=== PATIENT | male | born 1935 | race Caucasian/White ===

== ENCOUNTER 2017-06-27 00:10 | Emergency (ER) | payer MEDICARE, OTHER ==
--- NOTE | 2017-06-27 00:31 | ERNOTE ---
ER Male HPI Date of Service: 06/27/17 Stated Complaint: KIDNEY PAIN ER Male: dysuria Time Seen by Provider: 06/27/17 00:26 Source: patient Exam Limitations: no limitations Immunizations: IMMUNIZATION HX Immunizations Up to Date Yes History of Influenza Vaccine No Hx Pneumococcal Vaccination No Allergies/Adverse Reactions: Allergies ciprofloxacin [From Cipro] Adverse Reaction (Mild, Verified 06/27/17 00:20) makes sick Home Medications: HOME MEDICATIONS metFORMIN HCL [Glumetza] 500 mg PO BID 09/24/12 [Last Taken 10/13/12] Finasteride [Proscar] 5 mg PO DAILY 02/13/15 [Last Taken Unknown] Tamsulosin HCl [Flomax] 0.4 mg PO DAILY@1800 02/13/15 [Last Taken Unknown] Phenazopyridine HCl [Pyridium] 100 mg PO TID PRN #9 tablet 06/27/17 [Last Taken Unknown] Sulfamethoxazole/Trimethoprim [Bactrim Ds] 1 tab PO BID #14 tablet 06/27/17 [ Last Taken Unknown] - History of Present Illness Narrative: 83-year-old who began having dysuria this morning so no notes right lower back pain which occurs with urination as well. No history of fevers, chills, nausea or vomiting. The patient notes that the pain at the right lower back is similar to when he had a kidney stone previously. History of diabetes mellitus. Date (Duration): 06/27/17 Time (Timing): 00:32 - . Timing: Present: intermittent Quality: Present: mild Onset Location: Present: other - right lower back Radiation: Present: none Activities at Onset: Present: none Review of Systems - Review of Systems Constitutional: Present: no symptoms reported EYE: Present: no symptoms reported ENT: Present: no symptoms reported Respiratory: Present: no symptoms reported Cardiology: Present: no symptoms reported Gastrointestinal/Abdominal: Present: no symptoms reported Genitourinary: Present: See HPI Musculoskeletal: Present: no symptoms reported Skin: Present: no symptoms reported Neurological: Present: no symptoms reported Endocrine: Present: See HPI Hematologic/Lymphatic: Present: no symptoms reported - Patient's Past Medical History Patient History - Medical: Diabetes Type 2, Kidney stone, Other Patient History - Cardiac/Respiratory: No pertinent hx Patient History - Cancer: No Hx of Cancer Patient History - Surgical Procedures: Appendectomy, Other Patient History - Other: None - Social History Living Situations: home Abuse History: No History of abuse Psych History: No pertinent hx Smoking Status: Former smoker Alcohol Use: none Drug Use: none - Immunizations Immunizations Up to Date: Yes Hx Pneumococcal Vaccination: No History of Influenza Vaccine: No Physical Exam - Physical Exam General Appearance: Present: no apparent distress Head Exam: Present: normal inspection Eye Exam: Normal inspection: bilateral, PERRL: bilateral, EOMI: bilateral Ears, Nose, Throat: Present: normal ENT inspection Neck: Present: normal inspection Respiratory: Present: no respiratory distress Cardiovascular/Chest: Present: regular rate, rhythm Gastrointestinal/Abdominal: Present: nontender, nondistended Back Exam: Present: normal inspection Extremity Exam: Present: normal inspection Neurological Exam: Present: alert, oriented, normal mood/affect Skin Exam: Present: normal color ED Progress - Results and Orders Patient's Lab Results:: I have reviewed the patient's lab results. - Vital Signs Patient's Vital Signs:: I have reviewed the patient's vital signs. Vital Signs: Vital Signs 06/27/17 00:16 Temperature 36.5 C Pulse Rate 96 Respiratory 16 Rate Blood Pressure 147/79 O2 Sat by Pulse 96 Oximetry - CT/Ultrasound CT/Ultrasound Narrative: CT scan- 12 millimeters cystic lesion in the mid body of the pancreas on image 31 cholelithiasis A thickened urinary bladder with high attenuation coefficient bladder lumen. Differential includes blood products, proteinaceous debris her well as well as neoplasm. - Progress/Reassessment Chief Complaint: Genitourinary Problem Progress:: Unchanged Progress Note-Subjective: 06/27/17 01:06 Given Rocephin 1 gram IM and Pyridium 100 mg po. 06/27/17 02:11 Hemodynamically stable and afebrile at this time. 06/27/17 02:18 Given one Bactrim tablet by mouth. Departure Clinical Impression: UTI (urinary tract infection) - Departure Disposition: Home self-care Condition: Good Instructions: Urinary Tract Infection, Adult, [id number] Print Language: Nepalese Additional Instructions: If you begin to feel sick or have fevers return to the ED. Prescriptions: Phenazopyridine HCl [Pyridium] 100 mg PO TID PRN #9 tablet PRN Reason: Pain Sulfamethoxazole/Trimethoprim [Bactrim Ds] 1 tab PO BID #14 tablet
[2017-06-27 00:42] LABS: Urine Bilirubin Negative (NEGATIVE); Urine Blood 250 /ul (NEGATIVE); Urine Ketone 5 mg/dL (NEGATIVE); Urine Protein 100 mg/dL (NEGATIVE); Urine Specific Gravity 1.025 SP.GR. (1.005-1.030); Urine Urobilinogen Normal (NORMAL)
[2017-06-27 00:43] LABS: Hematocrit 41.4 % (42.0-52.0); Hemoglobin 14.1 gm/dL (13.5-18.0); Mean Cell Volume 83.5 fl (78-100); Mean Corpuscular Hemoglobin 28.4 pg (27-31); Mean Corpuscular Hgb Conc 34.1 g/dl (32-36); Mean Platelet Volume 9.9 fl (6.0-9.5); Neutrophil # 7.5 K/mm3 (1.3-6.0); Neutrophil % 77.7 % (42-75.0); Platelet Count 160 K/mm3 (150-450); Red Blood Count 4.96 M/mm3 (4.7-6.0); Red Cell Distribution Width 12.9 % (11.5-14.0); White Blood Count 9.6 K/mm3 (4.0-10.5)
[2017-06-27 00:48] LABS: Urine Appearance Cloudy; Urine Bacteria 3+; Urine Color Brown; Urine Nitrite Positive (NEGATIVE); Urine WBC >50 /hpf (0-5)
[2017-06-27 00:53] LABS: Anion Gap 12.5 mmol/L (6.8-13.8); BUN/Creatinine Ratio 14.7 (9.0-21.6); Calcium * 8.8 mg/dL (7.9-10.9); Carbon Dioxide 25.6 mmol/L (24-32.6); Estimated Creat Clear 47.2; Potassium 4.1 mmol/L (3.4-4.6)
[2017-06-27] MEDS ORDERED: PHENAZOPYRIDINE HCL 100 MG TABLET PO ONE (01:06)
[2017-06-27] MEDS ORDERED: LIDOCAINE HCL 20 ML VIAL ONE (01:07)
[2017-06-27] MEDS ORDERED: PHENAZOPYRIDINE HCL 100 MG TABLET ONE (01:10)
[2017-06-27] MEDS ORDERED: SULFAMETHOXAZOLE/TRIMETHOPRIM 1 TAB TABLET PO ONE (02:06)
[2017-06-27] MEDS ORDERED: SULFAMETHOXAZOLE/TRIMETHOPRIM 1 TAB TABLET ONE (02:07)
[2017-06-27 02:21] VITALS: BP 143/77
== END 2017-06-27 02:17 | disposition home or self-care (01) ==
LOC: ER 00:10
DX: N39.0 Urinary tract infection, site not specified (principal); Z87.442 Personal history of urinary calculi; Z87.891 Personal history of nicotine dependence